=== PATIENT | female | born 1995 | race American Indian/Alaskan Native ===

== ENCOUNTER 2018-12-22 20:55 | Emergency (ER) | payer MEDICAID ==
[2018-12-22 21:37] LABS: Bilirubin,Urine NEG (Negative); Blood,Urine SM (Negative); Color,Urine Yellow (Yellow); Protein,Urine <15 mg/dL mg/dL (Negative); Urobilinogen,Urine < 2.0 mg/dL (<2.0)
[2018-12-22 21:48] LABS: HCG Qualitative,Urine Negative (Negative)
--- NOTE | 2018-12-22 22:22 | Emergency Department Report ---
ED Abdominal Pain HPI - General Chief Complaint: Urogenital-Female Stated Complaint: STOMACH PAIN Time Seen by Provider: 12/22/18 22:09 Source: patient Mode of arrival: Ambulatory Limitations: No Limitations - History of Present Illness Initial Comments: This is a 23-year-old female here report that she is having lower abdominal pain 1 week. She says she is evidence of urinary burning i. Denies any nausea vomiting or diarrhea. Denies any fever or chills. Denies any blood in her urine. Patient unable to say if she is or not. Denies any vaginal bleeding or discharge. Denies any fever or chills. Pain is 3 out of 10 in cramping to pelvic area. Pain is intermittent and no alleviating or exacerbating factors and no medication taken for patient MD Complaint: abdominal pain Onset/Timin -: week(s) Location: suprapubic Radiation: none Migration to: no migration Severity scale (0 -10): 3 Quality: cramping Consistency: intermittent Improves With: nothing Worsens With: nothing Context: other (possible ) Associated Symptoms: dysuria. denies: nausea, vomiting, diarrhea, fever, chills, constipation, hematemesis, hematochezia, melena, hematuria, anorexia, syncope Treatments Prior to Arrival: other (none) - Related Data LMP (females 10-50): unknown Home Medications Medication Instructions Recorded Confirmed Last Taken Vit Calc,Iron,Folic 1 each PO DAILY 09/17/18 09/17/18 09/16/18 09:00 [ Vitamins] 1 Previous Rx's Medication Instructions Recorded Last Taken Type Naproxen [Naprosyn] 500 mg PO BID PRN #12 tablet 12/23/18 Unknown Rx cephALEXin [Keflex] 500 mg PO Q8HR 7 Days #21 cap 12/23/18 Unknown Rx Allergies Allergy/AdvReac Type Severity Reaction Status Date / Time No Known Allergies Allergy Verified 09/17/18 15:00 ED Review of Systems ROS: Stated complaint: STOMACH PAIN Other details as noted in HPI Constitutional: denies: chills, fever ENT: denies: throat pain Respiratory: denies: cough, shortness of breath, wheezing Cardiovascular: denies: chest pain, palpitations, edema, syncope Gastrointestinal: abdominal pain. denies: nausea, vomiting, diarrhea, constipation, hematemesis, melena, hematochezia Genitourinary: dysuria, abnormal menses. denies: urgency, frequency, hematuria, discharge, dyspareunia Musculoskeletal: denies: back pain, joint swelling, arthralgia, myalgia Skin: denies: rash Neurological: denies: headache, numbness, paresthesias, abnormal gait, vertigo ED Past Medical Hx - Past Medical History Previous Medical History?: No Hx Hypertension: No Hx Congestive Heart Failure: No Hx Diabetes: No Hx Deep Vein Thrombosis: No Hx Renal Disease: No Hx Sickle Cell Disease: No Hx Seizures: No Hx Asthma: No Hx COPD: No Hx HIV: No - Surgical History Past Surgical History?: Yes Additional Surgical History: hernia repair - Family History Family history: hypertension - Social History Smoking Status: Current Some Day Smoker Substance Use Type: None - Medications Home Medications: Home Medications Medication Instructions Recorded Confirmed Last Taken Type Vit Calc,Iron,Folic 1 each PO DAILY 09/17/18 09/17/18 09/16/18 09:00 History [ Vitamins] 1 Naproxen [Naprosyn] 500 mg PO BID PRN #12 tablet 12/23/18 Unknown Rx cephALEXin [Keflex] 500 mg PO Q8HR 7 Days #21 cap 12/23/18 Unknown Rx ED Physical Exam - General Limitations: No Limitations General appearance: alert, in no apparent distress - Head Head exam: Present: atraumatic, normocephalic - Eye Eye exam: Present: normal appearance, PERRL, EOMI Pupils: Present: normal accommodation - ENT ENT exam: Present: normal exam, normal orophraynx - Neck Neck exam: Present: normal inspection, full ROM. Absent: tenderness, lymphadenopathy - Respiratory Respiratory exam: Present: normal lung sounds bilaterally. Absent: respiratory distress, chest wall tenderness - Cardiovascular Cardiovascular Exam: Present: normal rhythm, tachycardia, normal heart sounds - GI/Abdominal GI/Abdominal exam: Present: soft, normal bowel sounds. Absent: distended, tenderness, guarding, rebound, rigid, organomegaly, mass - Extremities Exam Extremities exam: Present: normal inspection, full ROM, normal capillary refill, other (No cce. + 2 pulses in all extremities, no neurovascular compromise). Absent: tenderness, pedal edema, joint swelling, calf tenderness - Back Exam Back exam: Present: normal inspection, full ROM, other (ambulates without any difficulties). Absent: CVA tenderness (R), CVA tenderness (L), rash noted - Neurological Exam Neurological exam: Present: alert, oriented X3, normal gait - Psychiatric Psychiatric exam: Present: normal affect, normal mood - Skin Skin exam: Present: warm, dry, intact, normal color. Absent: rash ED Course Vital Signs 12/22/18 12/22/18 12/23/18 20:59 21:00 00:11 Temperature 98.8 F 98.8 F 97.4 F L Pulse Rate 104 H 102 H 78 Respiratory 18 18 18 Rate Blood Pressure 125/77 125/77 Blood Pressure 126/72 [Left] O2 Sat by Pulse 97 98 99 Oximetry - Reevaluation(s) Reevaluation #1: 12/22/18 23:53 Patient stable throughout ED course. Small amount of leukocyte Estrace and blood in her urine with dysuria and pelvic pain so we will treat for urinary tract infection. Keflex started. Left ovary follicle otherwise normal. ED Medical Decision Making - Lab Data Lab Results 12/22/18 Range/Units Unknown Urine Color Yellow (Yellow) Urine Turbidity Clear (Clear) Urine pH 5.0 (5.0-7.0) Ur Specific [place] 1.010 (1.003-1.030) Urine Protein <15 mg/dl (Negative) mg/dL Urine Glucose (UA) Neg (Negative) mg/dL Urine Ketones Neg (Negative) mg/dL Urine Blood Sm (Negative) Urine Nitrite Neg (Negative) Urine Bilirubin Neg (Negative) Urine Urobilinogen < 2.0 (<2.0) mg/dL Ur Leukocyte Esterase Sm (Negative) Urine WBC (Auto) 2.0 (0.0-6.0) /HPF Urine RBC (Auto) 2.0 (0.0-6.0) /HPF U Epithel Cells (Auto) 2.0 (0-13.0) /HPF Urine HCG, Qual Negative (Negative) Urine culture sent - Radiology Data Radiology results: report reviewed Ultrasound transvaginal dictated by radiologist's report reviewed by myself. No discrete adnexal mass. Dominant follicle left ovary measuring 2 cm. Normal physiological changes ovary. Please see details below Findings [facility] [address] [place] [address] Ultrasound Report Signed Patient: MAXIM LOERA MR#: [id number] : 1995 Acct:[id number] Age/Sex: 23 / F ADM Date: 12/22/18 Loc: ED Attending Dr: Ordering Physician: CHINA TRACY Date of Service: 12/22/18 Procedure(s): US transvaginal Accession Number(s): [id number] cc: CHINA TRACY FINAL REPORT EXAM: US TRANSVAGINAL HISTORY: Pelvic pain COMPARISON: None available. TECHNIQUE: Several real-time grayscale and color Doppler images were obtained. Transvaginal exam. FINDINGS: Uterus measures 7.6 x 4.6 x 5.8 centimeters. Endometrial stripe measures 3 millimeters. No discrete uterine lesions. Right ovary measures 3.6 x 2.6 x 2.3 centimeters. Left ovary measures 4.1 x 5.1 x 2.7 centimeters. Spectral analysis demonstrates arterial waveforms to the ovaries. Multiple follicles in the right ovary. Dominant follicle left ovary measuring 2 centimeters. No adnexal masses. No free fluid demonstrated. IMPRESSION: No discrete uterine lesions or adnexal masses. Normal physiologic changes of the ovaries. Dominant follicle in the left ovary measuring 2 centimeters. Transcribed By: LMA Dictated By: HERB CROUCH MD Electronically Authenticated By: HERB CROUCH MD Signed Date/Time: 12/22/182326 DD/ 25 TD/TT: 12/22/182325 - Medical Decision Making This is a 23-year-old female here complaining abdominal pain and occasional dysuria over the last week. She cannot confirm the last time that she had her p eriod. She was not having any continued abdominal pain emergency room. Patient urinalysis shows small amount of leukocyte Estrace and small amount of blood and test is negative. Ultrasound non-OB shows follicle left ovary otherwise stable. I discussed this was also patient and treatment plan and that she needs to follow up with [facility] and she voiced understanding. Patient says that she has been to [facility] in the past cytology that she needs to continue to follow-up [facility] for further evaluation and treatment. Patient started on Keflex to treat urinary tract infection. Vital signs are stable and she is afebrile. Heart rate is 102. Patient discharged home with prescription for naproxen to treat pelvic cramping and Keflex for UTI and urine culture sent. - Differential Diagnosis ectopic , uterine fibroids, ovarian mass versus cyst, UTI Critical care attestation.: If time is entered above; I have spent that time in minutes in the direct care of this critically ill patient, excluding procedure time. ED Disposition Clinical Impression: Pelvic cramping, Dysuria, Follicular cyst of left ovary UTI (urinary tract infection) Qualifiers: Urinary tract infection type: acute cystitis Hematuria presence: with hematuria Qualified Code(s): N30.01 - Acute cystitis with hematuria Disposition: TO HOME OR SELFCARE Is pt being admited?: No Does the pt Need Aspirin: No Condition: Stable Instructions: Ovarian Cyst (ED), Urinary Tract Infection in Women (ED), Dysuria (ED), Abdominal Pain (ED) Additional Instructions: Please follow up with the PEDIATRIC MEDICAL ASSISTANT in 2-3 days. If his symptoms worsen, return to the emergency room Take medication as prescribed. Take naproxen with food as this medication could be upsetting to stomach lining. Take Keflex for urinary tract infection as prescribed Prescriptions: cephALEXin [Keflex] 500 mg PO Q8HR 7 Days #21 cap Naproxen [Naprosyn] 500 mg PO BID PRN #12 tablet PRN Reason: abdominal cramping Referrals: OBGYN,[facility] [Other] - 2-3 Days Forms: Work/School Release Form(ED)
--- NOTE | 2018-12-22 23:27 | Ultrasound Report ---
FINAL REPORT EXAM: US TRANSVAGINAL HISTORY: Pelvic pain COMPARISON: None available. TECHNIQUE: Several real-time grayscale and color Doppler images were obtained. Transvaginal exam. FINDINGS: Uterus measures 7.6 x 4.6 x 5.8 centimeters. Endometrial stripe measures 3 millimeters. No discrete u terine lesions. Right ovary measures 3.6 x 2.6 x 2.3 centimeters. Left ovary measures 4.1 x 5.1 x 2.7 centimeters. Sp ectral analysis demonstrates arterial waveforms to the ovaries. Multiple follicles in the right ovary . Dominant follicle left ovary measuring 2 centimeters. No adnexal masses. No free fluid demonstrated. IMPRESSION: No discrete uterine lesions or adnexal masses. Normal physiologic changes of the ovaries. Dominant follicle in the left ovary measuring 2 centimeter s.
[2018-12-22] MEDS ORDERED: KEFLEX PO ONE (23:54)
[2018-12-23 14:43] VITALS: BP 126/72
== END 2018-12-23 00:11 | disposition home or self-care (01) ==
LOC: ED 20:55
DX: N83.02 Follicular cyst of left ovary (principal); N39.0 Urinary tract infection, site not specified; F17.200 Nicotine dependence, unspecified, uncomplicated
CPT/HCPCS: 76830; 81001; 81025; 87086